=== PATIENT | male | born 1945 | race Caucasian/White ===

== ENCOUNTER → 2016-06-23 | Outpatient (CLI) | payer OTHER, MEDICARE ==
--- NOTE | 2016-06-23 15:38 | RAD ---
EXAM DESCRIPTION: Shoulder,Right 2 or More Views CLINICAL HISTORY: 70 years, Male, SHOULDER PAIN COMPARISON: None. FINDINGS: No fracture or dislocation. Mild acromioclavicular degenerative change. IMPRESSION: No fracture or dislocation Electronically signed by: Jose Martínez MD 06/23/2016 3:37 PM CDT
== END | disposition home or self-care (01) ==
LOC: RAD 08:26
PROVIDERS: ATTEND Orthopaedic Surgery
DX: M25.511 Pain in right shoulder (principal)

== ENCOUNTER → 2016-06-28 | Outpatient (CLI) | payer BC, MEDICARE ==
--- NOTE | 2016-06-29 08:01 | MRI ---
EXAM DESCRIPTION: MRI right shoulder CLINICAL HISTORY: Right shoulder pain. Rotator cuff syndrome COMPARISON: None. TECHNIQUE: Multiplanar, multisequence MR images of the right shoulder FINDINGS: Minimal posterior subluxation of the humeral head relative to the central axis of the glenoid and scapular body. Full-thickness chondral loss of the posterior half of the glenoid with scalloped remodeling, type B 1 glenoid. Subchondral cystic change and extensive edema along the posterior glenoid with the edema throughout the glenoid extending to the junction with the body. High-grade chondral loss over the entire humeral head with 5 mm inferior medial humeral head osteophyte. Small region of marrow edema posterior superior humeral head over about 1.5 cm from grade 4 chondrosis. Small joint effusion without focal synovitis or intra-articular body Biceps tendon is normal. Abnormal signal in the labral anchor without detachment. Circumferential labral degeneration otherwise with chronic posterior labral tear and underlying bony changes. Small anterior sublabral glenoid rim osteophyte. Supraspinatus tendinosis. Articular surface fraying with thinning at the critical zone mid to posterior tendon. A small insertional interstitial component of tear along the mid tendon. The muscle volume is normal with no fatty filtration, grade 0 Infraspinatus tendinosis with low-grade interstitial fissuring along the anterior to mid tendon. Normal muscle volume and signal, grade 0 Teres minor tendon intact. Moderate muscle volume loss with grade 2 fatty infiltration. No abnormality of the quadrilateral space or deltoid Subscapularis tendinosis with partial interstitial tear of the mid to upper tendon. Fluid tracks back to the myotendinous junction. The muscle volume is mildly decreased with no fatty filtration, grade 0. Moderate acromioclavicular osteoarthritis with prominent distal clavicle osteophyte indenting the supraspinatus. Lateral downsloping of the acromion with tiny inferior lateral acromial spur IMPRESSION: Severe glenohumeral osteoarthritis with type B 1 glenoid. Cystic change and extensive marrow edema throughout the glenoid. Circumferential labral degeneration most significantly affecting the posterior labrum Supraspinatus tendinosis with partial tear, likely structurally significant at the critical zone mid posterior tendon Moderate grade partial interstitial insertional tear of the upper half subscapularis Electronically signed by: Gerald Canela MD 06/29/2016 8:01 AM CDT
== END ==
LOC: MRI 08:51
PROVIDERS: ATTEND Orthopaedic Surgery
DX: M75.111 Incomplete rotator cuff tear or rupture of right shoulder, not specified as traumatic (principal); M19.011 Primary osteoarthritis, right shoulder

== ENCOUNTER 2016-09-28 05:57 | Day surgery (SDC) | payer BC, MEDICARE ==
--- NOTE | 2016-09-25 12:38 | RAD ---
Study: Frontal and Lateral Views of the Chest. Indication: Pre Op Comparison: None. IMPRESSION: Heart size normal. Lungs clear. No acute osseous abnormality. Electronically signed by: Josiah Schultz MD 09/25/2016 12:37 PM CDT
[2016-09-28] MEDS ORDERED: LACTATED RINGERS 1,000 ML ONE (06:51)
[2016-09-28] MEDS ORDERED: SODIUM CHL 0.9% 100ML MINI-BAG 100 ML IVPB ONE (06:51)
[2016-09-28] MEDS ORDERED: ceFAZolin SODIUM 1 GM VIAL ONE (06:51)
[2016-09-28] MEDS ORDERED: KETOROLAC TROMETHAMINE INJ 30 MG/ML VIAL ONE (07:00)
[2016-09-28] MEDS ORDERED: DEXAMETHASONE INJ 10 MG/ML VIAL ONE (07:00)
[2016-09-28] MEDS ORDERED: SODIUM CHLORIDE 0.9% 50 ML VIAL ONE (07:00)
[2016-09-28] MEDS ORDERED: LIDOCAINE 1% 10 ML VIAL INJ ONE (07:00)
[2016-09-28] MEDS ORDERED: raNITIdine HCL INJ 25 MG/ML VIAL ONE (07:00)
[2016-09-28] MEDS ORDERED: PROPOFOL 200 MG/20 ML VIAL IV ONE (07:00)
[2016-09-28] MEDS ORDERED: BUPIVACAINE 0.25% W/EPI 50 ML VIAL INJ ONE (08:15)
[2016-09-28] MEDS ORDERED: fentaNYL CITRATE INJ 50 MCG/ML AMP ONE (08:16)
[2016-09-28] MEDS ORDERED: MIDAZOLAM INJ 5 MG/5 ML VIAL ONE (08:16)
[2016-09-28] MEDS ORDERED: ACETAMINOPHEN IV 1000MG 100 ML ONE (08:53)
[2016-09-28] MEDS ORDERED: HYDROmorphone HCL INJ 2 MG/ML VIAL ONE (09:58)
[2016-09-28 11:08] VITALS: O2SAT 95
--- NOTE | 2016-09-28 11:08 | OP ---
DATE OF PROCEDURE: 09/28/16 PREOPERATIVE DIAGNOSIS: 1. Right inguinal hernia. POSTOPERATIVE DIAGNOSIS: 1. Right inguinal hernia. PROCEDURE: 1. Repair of right inguinal hernia with Surgimesh patch and plug. SURGEON: Erwin Cameron MD. TELETYPE INSTALLER: None. ANESTHESIA: General endotracheal anesthesia and local infiltration of 0.25% Marcaine with epinephrine. INDICATION: The patient is a 70-year-old male who presented with a tender mass in his right groin. No discrete injury. There had been increasing discomfort, especially when bending over. The patient was brought to the Surgical Suite today for hernia repair after the risks, benefits and alternatives to the procedure were discussed and accepted. FINDINGS: The patient had an indirect hernia with a sliding component. He had what would be considered two cord lipomas. He also was noted to have some weakness in the floor of the canal, especially laterally, but no discrete hernia. PROCEDURE: After adequate general endotracheal anesthesia was obtained, the patient was prepped and draped in the usual sterile manner. At this point, a surgical time-out was taken. He had been given 2 grams of Ancef. An oblique incision was fashioned in the right groin, first with infiltration of anesthesia , then with a sharp knife. Dissection was carried down through the skin and subcutaneous tissue to the external oblique fascia using electrocautery and blunt dissection. The self-retaining retractor was placed at this level. The external oblique fascia was then opened in the direction of the fibers through the external ring. When this was done, the external oblique fascia was dissected free from the floor of the canal and the cord. Self-retaining retractor was placed at this level. The cord was then dissected free from the floor of the canal along with the nerve. A half inch [place] drain was placed around both for traction. The cord was then explored and the indirect hernia sac and lipomas were identified and dissected free. The lipomas were transected using clamps and ligatures of 3-0 Vicryl. The indirect hernia sac was dissected free down to the floor of the canal and then reduced below the floor of the canal. At this point, a Surgimesh patch was introduced under the floor of the canal and sutured circumferentially with 2-0 Vicryl interrupted simple sutures. When this was done, the wound was irrigated with saline. Hemostasis was noted to be adequate. There was some weakness of the lateral aspect of the floor of the canal and this was repaired with 3 imbricating sutures of 2-0 Vicryl. When this was done, Surgimesh patch was sutured around the cord in the usual manner with interrupted 2-0 Vicryl sutures. When this was done, again, the wound was irrigated with saline. Hemostasis was noted to be adequate. The cord and nerve were then placed back in position. The external oblique fascia was then closed with running 3-0 Vicryl suture. The cord and subcutaneous tissue above, below and lateral to the incision were infiltrated with local anesthesia. The Kristian's fascia was approximated with interrupted 3-0 Chromic suture. Skin edges were approximated with skin stapler. Sterile pressure dressing was applied. The scrotum was checked for position of the testicle. The patient was awakened and taken to the Recovery Room in good and stable condition. Estimated blood loss was less than 25 mL. All sponge, needle and instrument counts were correct. #[id number] [facility]
[2016-09-28] MEDS ORDERED: ONDANSETRON INJ 4 MG/2 ML VIAL ONE (12:16)
[2016-09-28 12:32] VITALS: TEMP 98.5
[2016-09-28 13:01] VITALS: BP 162/86
== END 2016-09-28 12:45 | disposition home or self-care (01) ==
LOC: AMB 05:57
PROVIDERS: ATTEND Surgery
DX: K40.90 Unilateral inguinal hernia, without obstruction or gangrene, not specified as recurrent (principal); D17.6 Benign lipomatous neoplasm of spermatic cord; Z88.8 Allergy status to other drugs, medicaments and biological substances; Z79.82 Long term (current) use of aspirin; Z79.899 Other long term (current) drug therapy
CPT/HCPCS: 00830; 36415; 49505; 71020; 80053; 81001; 85025; A4216; C1781; J0690; J1100; J1170; J1885; J2250; J2405; J2780; J3010; J3490; J7050; J7120

== ENCOUNTER 2017-12-24 05:39 | Day surgery (SDC) | payer BC, MEDICARE ==
[2017-12-24] MEDS ORDERED: TROP 1%/CYCLOPEN 1%/PHENYL 2% DROPS OPHTH ONE (05:40)
[2017-12-24] MEDS ORDERED: MIDAZOLAM INJ 2 MG/2 ML VIAL ONE (06:46)
[2017-12-24] MEDS ORDERED: PROPARACAINE 0.5% OPHTH SOL 15 ML BTTL RIGHT_EYE ONE (10:15)
[2017-12-24] MEDS ORDERED: LIDOCAINE 1% MPF 5 ML VIAL INJ ONE ×2 (10:24→10:34)
[2017-12-24] MEDS ORDERED: DEXAMETHASONE 0.1% OPHTH SOL 1 DROP RIGHT_EYE ONE ×2 (10:24→10:49)
[2017-12-24] MEDS ORDERED: TOBRAMYCIN SULF 0.3 % OPHT SOL 1 DROP RIGHT_EYE ONE ×2 (10:24→10:49)
[2017-12-24] MEDS ORDERED: BRIMONIDINE 0.2% OPHTH DROPS RIGHT_EYE ONE ×2 (10:25→10:49)
== END 2017-12-24 11:40 | disposition home or self-care (01) ==
LOC: AMB 05:39
PROVIDERS: ATTEND Ophthalmology
DX: H25.9 Unspecified age-related cataract (principal); H40.9 Unspecified glaucoma
CPT/HCPCS: 00142; 66984; J2250

== ENCOUNTER 2018-01-07 05:39 | Day surgery (SDC) | payer BC, MEDICARE ==
[2018-01-07] MEDS ORDERED: TROP 1%/CYCLOPEN 1%/PHENYL 2% DROPS ONE (05:56)
[2018-01-07] MEDS ORDERED: PROPARACAINE 0.5% OPHTH SOL 15 ML BTTL ONE (05:56)
[2018-01-07] MEDS ORDERED: MIDAZOLAM INJ 5 MG/5 ML VIAL ONE (06:42)
[2018-01-07] MEDS ORDERED: fentaNYL CITRATE INJ 50 MCG/ML AMP ONE (07:12)
[2018-01-07] MEDS ORDERED: PROPARACAINE 0.5% OPHTH SOL 15 ML BTTL LEFT_EYE ONE (07:15)
[2018-01-07] MEDS ORDERED: BRIMONIDINE 0.2% OPHTH DROPS LEFT_EYE ONE ×2 (07:27→07:34)
[2018-01-07] MEDS ORDERED: TOBRAMYCIN-DEXAMETH OPHTH SOL 1 DROP LEFT_EYE ONE ×2 (07:27→07:34)
[2018-01-07] MEDS ORDERED: LIDOCAINE 1% 2 ML VIAL INJ ONE (07:27)
[2018-01-07] MEDS ORDERED: DEXAMETHASONE 0.1% OPHTH SOL 1 DROP LEFT_EYE ONE ×2 (07:27→07:34)
== END 2018-01-07 08:11 | disposition home or self-care (01) ==
LOC: AMB 05:39
PROVIDERS: ATTEND Ophthalmology
DX: H25.12 Age-related nuclear cataract, left eye (principal); Z88.5 Allergy status to narcotic agent
CPT/HCPCS: 00142; 66984; J2250; J3010

== ENCOUNTER 2019-08-22 00:33 | Emergency (ER) | payer BC, MEDICARE ==
[2019-08-22] MEDS: ASPIRIN TABLET 325 MG TAB PO ONE (00:50)
[2019-08-22] MEDS: ALUM & MAG HYDROX-SIMETHICONE 30 ML, LIDOCAINE VISCOUS 2% 15 ML PO ONE ×2 (00:50)
--- NOTE | 2019-08-22 00:58 | RAD ---
EXAM DESCRIPTION: Chest,1 View CLINICAL HISTORY: 73 years Male, chest pain COMPARISON: None TECHNIQUE: Single AP chest radiograph. FINDINGS: Clear lungs. No pneumothorax or pleural effusion. Normal cardiomediastinal contour. Normal osseous structures. IMPRESSION: 1. No acute cardiopulmonary process. Electronically signed by: Timi Kim MD 08/22/2019 12:57 AM CDT
--- NOTE | 2019-08-22 03:49 | ED.PDOC ---
History of Present Illness - General Chief Complaint: Cardiovascular Problem Stated Complaint: chest pain Time Seen by Provider: 08/22/19 00:35 Source: patient Exam Limitations: no limitations - History of Present Illness Initial Comments: The patient is a 73-year-old male presenting to the emergency room secondary to substernal chest pain that started about 230 this afternoon after he ate lunch. Pain was mild to moderate and intermittent. It was squeezing in nature. The patient has had a history of gastritis and reflux in the past including a need for esophageal dilation in the past. His last attempted esophageal dilation was more than 2 years ago. Chest pain was completely relieved with a GI cocktail here upon arrival. No known history of any coronary artery disease. Timing/Duration: other - 10 hours Improving Factors: medication Associated Symptoms: chest pain Allergies/Adverse Reactions: Allergies Codeine Allergy (Verified 08/22/19 01:08) Home Medications: Ambulatory Orders Famotidine [Pepcid Tab] 20 mg PO BID #60 tab 08/22/19 Sucralfate Tab [Carafate Tab] 1 gm PO QID #120 tab 08/22/19 Review of Systems - Review of Systems Constitutional: States: no symptoms reported EENTM: States: no symptoms reported Respiratory: States: no symptoms reported Cardiology: States: chest pain Gastrointestinal/Abdominal: States: see HPI Genitourinary: States: no symptoms reported Musculoskeletal: States: no symptoms reported Skin: States: no symptoms reported Endocrine: States: no symptoms reported Hematologic/Lymphatic: States: no symptoms reported All other Systems: No Change from Baseline Past Medical History (General) - Patient Medical History Hx Seizures: No Hx Stroke: No Hx Asthma: No Hx of COPD: No Hx Cardiac Disorders: No Hx Congestive Heart Failure: No Hx Pacemaker: No Hx Hypertension: No Hx Diabetes: No Hx MRSA: No - Vaccination History Hx Tetanus, Diphtheria Vaccination: No Hx Influenza Vaccination: No Hx Pneumococcal Vaccination: No Immunizations Up to Date: No - Social History Hx Tobacco Use: No Hx Alcohol Use: Yes - social Hx Substance Use: No Hx Substance Use Treatment: No Hx Depression: No Hx Physical Abuse: No Hx Emotional Abuse: No Family Medical History - Family History Mother Family History: Unknown Physical Exam - Physical Exam General Appearance: Alert, Comfortable, No apparent distress Eye Exam: bilateral normal Ears, Nose, Throat: hearing grossly normal, normal pharynx Neck: full range of motion, supple Respiratory: lungs clear, normal breath sounds, no respiratory distress, no accessory muscle use Cardiovascular/Chest: normal peripheral pulses, regular rate, rhythm, no edema Peripheral Pulses: radial,right: 2+, radial,left: 2+ Gastrointestinal/Abdominal: non tender, soft Rectal Exam: deferred Extremity: normal range of motion, non-tender, no pedal edema, normal capillary refill Neurologic: candles pourer II-XII nml as tested, alert, normal mood/affect, oriented x 3 Skin Exam: normal color Comments: Vital Signs - 24 hr 08/22/19 08/22/19 08/22/19 00:33 01:11 01:39 Temperature 98.2 F 96.8 F L Pulse Rate [ 78 82 81 monitor] Respiratory 17 17 16 Rate Blood Pressure 145/87 135/80 119/76 [Right Arm] O2 Sat by Pulse 94 L 93 L 93 L Oximetry 08/22/19 02:30 Temperature Pulse Rate [ 72 monitor] Respiratory 17 Rate Blood Pressure 132/76 [Right Arm] O2 Sat by Pulse 94 L Oximetry Progress - Progress Progress: 08/22/19 03:50 The patient is a 73-year-old male presented emergency room secondary to substernal chest pain over the last 10 hours. Based upon the clinical presentation and the response to GI medications along with his history of esophageal stricture in the past, it is likely the symptoms are due to a repeat esophageal stricture and esophagitis. The patient is doing better after GI cocktail. Cardiac enzymes are negative x2 and EKG is reassuring. The patient is going to be written for Carafate and Pepcid to be taken over the next couple weeks. He needs to contact his stock blender to arrange for another EGD. At least for the next couple of days I would also recommend maintaining a pured or liquefied diet. ER warnings are given. Maalox can be used on an as-needed basis. luz mauro [id number] - Results/Orders Results/Orders: Single view chest x-ray shows no acute pathology. EKG shows normal sinus rhythm at 80 bpm. Normal axis. Normal R wave progression. Normal QT interval. Mild left atrial dilation. No ST segment or T wave changes definitively indicative of ischemia. This EKG is consistent with an EKG from 2017. Laboratory Results - last 24 hr 08/22/19 08/22/19 08/22/19 00:40 00:40 00:40 WBC 7.2 RBC 4.66 L Hgb 15.0 Hct 44.1 MCV 94.5 H MCH 32.1 H MCHC 34.0 RDW 14.0 Plt Count 159 MPV 8.6 Absolute Neuts (auto) 4.10 Absolute Lymphs (auto) 2.10 Absolute Monos (auto) 0.70 Absolute Eos (auto) 0.20 Absolute Basos (auto) 0.10 Neutrophils % 57.3 Lymphocytes % 28.7 Monocytes % 10.1 H Eosinophils % 2.6 Basophils % 1.3 PT INR PTT (SP) Sodium 136 Potassium 3.4 L Chloride 103 Carbon Dioxide 23 Anion Gap 13.4 BUN 11 Creatinine 1.09 BUN/Creatinine Ratio 10.1 Random Glucose 168 H Serum Osmolality 275.2 Calcium 9.6 Magnesium 2.1 Total Bilirubin 0.8 AST 31 ALT 29 Alkaline Phosphatase 54 Creatine Kinase 315 H* CK-MB (CK-2) 4.5 H CK-MB (CK-2) % 1.43 Troponin I 0.03 B-Natriuretic Peptide 29.1 Serum Total Protein 7.2 Albumin 4.2 Globulin 3.0 Albumin/Globulin Ratio 1.4 Amylase 69 Lipase 35 08/22/19 08/22/19 00:40 03:17 WBC RBC Hgb Hct MCV MCH MCHC RDW Plt Count MPV Absolute Neuts (auto) Absolute Lymphs (auto) Absolute Monos (auto) Absolute Eos (auto) Absolute Basos (auto) Neutrophils % Lymphocytes % Monocytes % Eosinophils % Basophils % PT 10.1 INR 1.02 PTT (SP) 22.1 Sodium Potassium Chloride Carbon Dioxide Anion Gap BUN Creatinine BUN/Creatinine Ratio Random Glucose Serum Osmolality Calcium Magnesium Total Bilirubin AST ALT Alkaline Phosphatase Creatine Kinase 271 H* CK-MB (CK-2) 4.1 CK-MB (CK-2) % 1.51 Troponin I 0.03 B-Natriuretic Peptide Serum Total Protein Albumin Globulin Albumin/Globulin Ratio Amylase Lipase Departure - Departure Clinical Impression: Esophagitis Disposition: Discharge to Home or Self Care Condition: Fair Departure Forms: ED Discharge - Pt. Copy, Patient Portal Self Enrollment Instructions: Esophageal Stricture, Acid Reflux and GERD in Adults (DC) Diet: full liquid diet Activity: increase activity as tolerated Referrals: Vipin Mariano MD [Primary Care Provider] - 1-2 Weeks Prescriptions: Famotidine [Pepcid Tab] 20 mg PO BID #60 tab Sucralfate Tab [Carafate Tab] 1 gm PO QID #120 tab Home Medications: Ambulatory Orders Famotidine [Pepcid Tab] 20 mg PO BID #60 tab 08/22/19 Sucralfate Tab [Carafate Tab] 1 gm PO QID #120 tab 08/22/19 Additional Instructions: The patient is a 73-year-old male presented emergency room secondary to substernal chest pain over the last 10 hours. Based upon the clinical presentation and the response to GI medications along with his history of esophageal stricture in the past, it is likely the symptoms are due to a repeat esophageal stricture and esophagitis. The patient is doing better after GI cocktail. Cardiac enzymes are negative x2 and EKG is reassuring. The patient is going to be written for Carafate and Pepcid to be taken over the next couple weeks. He needs to contact his stock blender to arrange for another EGD. At least for the next couple of days I would also recommend maintaining a pured or liquefied diet. ER warnings are given. Maalox can be used on an as-needed basis.
[2019-08-22] MEDS: SUCRALFATE 1 GM/10 ML 1 GM UD PO ONE (03:56)
[2019-08-22 03:58] VITALS: BP 122/77; TEMP 97.3; O2SAT 93
== END 2019-08-22 04:02 | disposition home or self-care (01) ==
LOC: ER 00:33
DX: K20.9 Esophagitis, unspecified (principal); R07.9 Chest pain, unspecified